=== PATIENT | male | born 1990 | race Hispanic/Latino ===

== ENCOUNTER 2019-02-12 09:32 | Emergency (ER) | payer SELFPAY ==
[~2019-02-12] VITALS: Ht 172.7 cm; Wt 102.1 kg
[2019-02-12] MEDS ORDERED: CLONIDINE HCL 0.1 MG TAB PO ONE ×2 (10:15→11:15)
--- NOTE | 2019-02-12 10:34 | Diagnostic Imaging Report ---
EXAMINATION: CXR 2 VIEW - HOPD INDICATION: Chest pain. COMPARISON: None FINDINGS: TUBES and LINES: None. LUNGS: Lungs are well inflated. Lungs are clear. There is no evidence of pneumonia or pulmonary edema. PLEURA: No pleural effusion or pneumothorax. HEART AND MEDIASTINUM: The cardiomediastinal silhouette is unremarkable. BONES AND SOFT TISSUES: No acute osseous abnormality. UPPER ABDOMEN: No free air under the diaphragm. IMPRESSION: No acute radiographic abnormality. Signed by: Dr. Danita De La Rosa MD on 02/12/2019 10:30 AM
[2019-02-12 11:18] VITALS: BP 135/79
== END 2019-02-12 11:26 | disposition home or self-care (01) ==
LOC: EDBD 09:32 → FSED 09:32
DX: R07.89 Other chest pain (principal); I10 Essential (primary) hypertension
CPT/HCPCS: 71046; 93005; 99283